=== PATIENT | female | born 1945 | race Caucasian/White ===

== ENCOUNTER 2017-01-20 12:50 | Inpatient (IN) | payer MEDICARE ==
--- NOTE | ~2017-01-20 | CN ---
Consultation Report [id number] [place]. [address] NAME: MADINA FERRIS : 46 STATUS : DIS IN PAT#: [id number] AGE: 71 ADM/REG DATE : 01/21/17 MR#: [id number] REPORT SERV DATE: 02/02/17 DICTATED BY: GINO NEVAREZ DATE: 02/01/17 REPORT STATUS : Draft TRANSCRIBED BY: MODEtelvina DATE: 02/01/17 CONSULT NOTE DATE OF CONSULTATION: 01/21/2017 REASON FOR REQUEST: Evaluation for possible diverticulitis and left lower quadrant abdominal pain. HISTORY OF PRESENT ILLNESS: Ms Ferris is a 71-year-old female, who is status post recent renal artery angioplasty and stent by Dr. Kumar. She went home from this procedure and initially did very well and then started noticing hematoma and swelling in her leg and started developing left lower quadrant abdominal pain. She presented to the emergency room and a CT scan was performed demonstrated a large hematoma, but also evidence of possible diverticulitis, and I was asked to see her for this purpose. She has not had a colonoscopy before. Does report a history of constipation, but no melena, no hematochezia. She states she has had similar pain in the past, but it usually gets better after a bowel movement, and she has not had a bowel movement in several days. She states the pain is worse when she moves, but she denies any fever or chills and states the pain has gotten better since being admitted to the hospital. As mentioned, a CT scan obtained showed suspicion of inflammation from the hematoma or inflammation from diverticulitis, but there is no abscess or pneumoperitoneum. She is noted have an elevated white count in the emergency room, but she has never had any previous hospitalizations for diverticulitis. Also of note, she has a history of chronic renal insufficiency, but her creatinine is slightly elevated in the 3.3 range. She denies any syncope and no other precipitating or alleviating factors. PAST MEDICAL HISTORY: Significant for spinal stenosis, coronary artery disease, chronic renal insufficiency, hypertension, diabetes, hyperlipidemia, and gastroesophageal reflux disease. PREVIOUS SURGERIES: Include back surgery and cardiac stents and renal stents. MEDICATIONS: Taken at home, amlodipine, aspirin, carvedilol, hydralazine, insulin, liraglutide, nitroglycerin, omeprazole, potassium, and Crestor. ALLERGIES: PERCOCET, PROPOXYPHENE, PLAVIX. SOCIAL HISTORY: Denies tobacco or alcohol use. FAMILY HISTORY: Significant for hypertension. REVIEW OF SYSTEMS: A comprehensive 12-point review of systems was obtained and completely negative, otherwise mentioned in the history of present illness. PHYSICAL EXAMINATION: Consultation Report [place] [id number] [place]. [address] NAME: MADINA FERRIS : 46 STATUS : DIS IN PAT#: [id number] AGE: 71 ADM/REG DATE : 01/21/17 MR#: [id number] REPORT SERV DATE: 02/02/17 DICTATED BY: GINO NEVAREZ DATE: 02/01/17 REPORT STATUS : Draft TRANSCRIBED BY: JOSÉ DATE: 02/01/17 VITAL SIGNS: Pulse 75, respirations 18, blood pressure 123/72, temperature is 98. GENERAL: She is a well-developed female, in no acute cardiopulmonary distress. HEENT: Pupils are equal, round, and reactive to light. Extraocular movements intact. Conjunctivae are nonicteric. NECK: Supple. She has no jugular venous distention. No carotid bruits. No cervical lymphadenopathy. PULMONARY: Normal respiratory effort. Breath sounds are clear. CARDIOVASCULAR: Regular rate and rhythm. ABDOMEN: Soft. She does have tenderness to the left side, but she has a large amount of ecchymosis and it is unsure she is tender really from hematoma or truly an abdominal process. She has great bowel sounds and certainly does not have any peritoneal signs. EXTREMITIES: The left groin hematoma and some mild edema. LABORATORY DATA: White blood cell count 16, hematocrit 28, platelet count 133. Sodium 137, potassium 4.5, chloride 98, CO2 of 25, BUN 15, creatinine 3.19, glucose 194. Lipase 335. Total bilirubin 1, alkaline phosphatase 79, ALT 21, AST 38. Lactic acid is 1.5. Procalcitonin is 0.95. CT scan of the abdomen and pelvis was reviewed and demonstrates nonspecific inflammation of the left colon and a large hematoma. There is certainly no intraabdominal abscess or pneumoperitoneum. There are noted to be sigmoid diverticula. ASSESSMENT: 1. Left lower quadrant abdominal pain, possibly secondary to hematoma from recent vascular procedure or diverticulitis. 2. History of hypertension. 3. History of diabetes. 4. Chronic renal insufficiency. I think it is reasonable to treat her as if she has diverticulitis and started on broad- spectrum antibiotics. We will repeat her imaging in a couple days. I recommended she have an outpatient colonoscopy once the inflammation resolves. We will continue to follow this patient along with you. Should any need arise for surgery, we will certainly continue to follow. CARLA/JOSÉ Gino Nevarez M.D. / [id number] CC: Consultation Report [address] [place] [address] NAME: MADINA FERRIS : 46 STATUS : DIS IN PAT#: [id number] AGE: 71 ADM/REG DATE : 01/21/17 MR#: [id number] REPORT SERV DATE: 02/02/17 DICTATED BY: GINO NEVAREZ DATE: 02/01/17 REPORT STATUS : Draft TRANSCRIBED BY: JOSÉ DATE: 02/01/17 Jesús Connors M.D. Cooper Paniagua M.D.
--- NOTE | ~2017-01-20 | DS ---
Discharge Summary [facility] [address] [place]. [address] NAME: MADINA FERRIS : 46 STATUS : DIS IN PAT#: [id number] AGE: 71 ADM/REG DATE : 01/21/17 MR#: [id number] REPORT SERV DATE: 02/01/17 DICTATED BY: KRISTEN DUMONT DATE: 01/28/17 REPORT STATUS : Draft TRANSCRIBED BY: MODL DATE: 01/28/17 ADMISSION DATE: 01/21/2017 DISCHARGE DATE: 01/28/2017 DISCHARGE DIAGNOSES: 1. Pelvic hematoma post procedure. 2. Left groin and flank hematoma post procedure. 3. Diverticulitis. 4. Acute kidney injury. 5. Chronic kidney disease 4. 6. Renovascular hypertension, status post bilateral renal artery stenting by Dr. Bernardo Kumar on 01/18/2017. 7. Bilateral renal artery stenosis post stenting, 01/18/2017. 8. Type 2 diabetes, on basal bolus correction insulin. 9. Anemia of chronic disease. 10.Acute blood loss anemia. 11.Coronary artery disease post CABG, post stenting. 12.Uncontrolled pain associated with acute diverticulitis and hematomas, improved at discharge. 13.Gastroesophageal reflux disease. 14.Spinal stenosis with previous surgery and associated chronic pain syndrome. OPERATIONS AND PROCEDURES: None. PRESENT ILLNESS: This is a 71-year-old white female, who was triaged in the emergency room on 01/20/2017 at 1110 hours complaining of abdominal pain. In the emergency room, her evaluation included a CT scan of her abdomen and pelvis in the setting of recent bilateral renal artery stent placement. The impression was: 1. Left inguinal hematoma with hemorrhage extending superiorly into the left lateral abdominal wall musculature. 2. Abdominal inflammation adjacent to the left descending colon which may be related to an additional area of hemorrhage, but could also represent coincidental mild diverticulitis. 3. Bilateral renal artery stents. 4. Bilateral renal cortical scarring, left greater than right, with relative atrophy of left kidney with nonobstructing left renal calculus. 5. Minimal bibasilar linear atelectasis, mild pleural thickening or fluid in the posterior left chest. She was referred to the Hospitalist Service for admission. She was seen by Dr. Kristen Marmolejo and admitted as described on admission history and physical examination. ADDITIONAL HISTORY: Per Dr. Marmolejo. PHYSICAL EXAMINATION: Per Dr. Marmolejo. Discharge Summary [address] [place]. [address] NAME: MADINA FERRIS : 46 STATUS : DIS IN PAT#: [id number] AGE: 71 ADM/REG DATE : 01/21/17 MR#: [id number] REPORT SERV DATE: 02/01/17 DICTATED BY: KRISTEN DUMONT DATE: 01/28/17 REPORT STATUS : Draft TRANSCRIBED BY: MODL DATE: 01/28/17 ADMISSION LABORATORY: Per Dr. Marmolejo. HOSPITAL COURSE: She was admitted by Dr. Marmolejo with: 1. Abdominal pain. 2. Abnormal CT of abdomen for hemorrhage and diverticulitis as noted. 3. Acute kidney injury on CKD 4. 4. Postural hypotension. All in the setting of the above-mentioned comorbidities. She was admitted to [address] [place] [address]. Home medications were adjusted including discontinuation of olmesartan. IV hydration was given. Her case was discussed with Dr. Bernardo Kumar. IV antibiotics were given. Nephrology consultation was obtained. Her hospitalist care was assumed by Dr. Otoniel Daniels. Her hospitalist care from admission through 01/24/2017 is as outlined on interim summary dictated by Dr. Daniels. HOSPITAL COURSE: 01/25/2017 through 01/28/2017: She had persistent lower abdominal pain associated with anorexia, weakness, and some occasional orthostatic hypotension. Treatment initiated on admission and continued by Dr. Daniels was continued. During this time, her hemoglobin remained stable, and there was no clinical evidence for continued bleeding. She was thought to have acute diverticulitis based on her CT and symptoms. Inflammatory markers were checked to assist in managing her therapy and evaluating her symptoms. Her procalcitonin fell from 0.95 on 01/20/2017 to 0.16 on 01/27/2017. A C-reactive protein fell from 221 on 01/20/2017 to 98.8 on 01/27/2017. Her creatinine which was 3.19 on admission slowly improved and was 1.93 at discharge. She developed some oral mucositis which improved with additional mouth care and Mycelex troches. She was seen by Physical Therapy and slowly ambulated. Her pain management improved with scheduled q.6 hour tramadol and Tylenol. By 01/28/2017, she was stronger. Her appetite was improved. She was eating more. Her mouth irritation had improved. She was having regular stools without diarrhea. She was not orthostatic. Her laboratory studies were as noted above. At this point, it was felt she had achieved a level of improvement and stability where she can be safely discharged home to be seen by Dr. Paniagua next week, Dr. Kline next week, and Discharge Summary [address] [place]. [address] NAME: MADINA FERRIS : 46 STATUS : DIS IN PAT#: [id number] AGE: 71 ADM/REG DATE : 01/21/17 MR#: [id number] REPORT SERV DATE: 02/01/17 DICTATED BY: KRISTEN DUMONT DATE: 01/28/17 REPORT STATUS : Draft TRANSCRIBED BY: JOSÉ DATE: 01/28/17 Dr. Farrell her protective signal installer at the end of this month. She was advised that in the future she needs an outpatient colonoscopy. She will continue her home diet. DISCHARGE MEDICATIONS: Her discharge medications pending outpatient followup will be amlodipine 5 mg at bedtime, aspirin 81 mg daily, Coreg 12.5 mg twice daily, NovoLog home scale per Dr. Farrell, Toujeo insulin reduced from 64 units to 30 units pending home glucose monitoring, Prilosec 20 mg every other day, tramadol 50 mg every six hours plus Tylenol 500 mg every six hours scheduled to be tapered as pain allows, Flagyl 500 mg every eight hours to complete a 10-day course, Victoza 1.8 mg subcu at bedtime, nitroglycerin sublingually as needed, Crestor 40 mg at bedtime, Mycelex troches give times daily for the next five days. At discharge, she was not to use Apresoline 50 mg at bedtime or Benicar 40 mg at bedtime pending followup next week. Discharge time greater than 30 minutes. DD/MODL Kristen Dumont M.D. / [id number] CC: Kristen Dumont, M.D. Cooper Siva, M.Naomie Spivey Jr., M.D. Asma Khan, MD
--- NOTE | ~2017-01-20 | IDS ---
Interim Discharge Summary [facility] [address] [place]. [address] NAME: MADINA FERRIS : 46 STATUS : DIS IN PAT#: [id number] AGE: 71 ADM/REG DATE : 01/21/17 MR#: [id number] REPORT SERV DATE: 01/24/17 DICTATED BY: OTONIEL DANIELS DATE: 01/24/17 REPORT STATUS : Draft TRANSCRIBED BY: MODL DATE: 01/24/17 ADMISSION DATE: 01/21/2017 DISCHARGE DATE: INTERIM DIAGNOSES: 1. Left groin and pelvic hematomas, status post procedure. 2. Mild diverticulitis. 3. Acute on chronic renovascular disease. 4. Type 2 diabetes mellitus. 5. Hypertension. 6. Hypercholesterolemia. 7. Gastroesophageal reflux. 8. Chronic anemia. CONSULTANTS DURING THIS HOSPITALIZATION: 1. Dr. Leo Culp of General Surgery. 2. Dr. Estevan Hidns of Nephrology. INVASIVE PROCEDURES DONE DURING THIS HOSPITALIZATION: None. BRIEF HISTORY OF PRESENT ILLNESS: The patient is a 71-year-old female, whose primary care physician is Dr. Cooper Paniagua, was referred for an abrupt rise in creatinine to Nephrology showing right renal artery stenosis. Dr. Ricco Kumar performed the arteriogram and deployed bilateral renal artery stents. After the renal artery stenosis, her creatinine did bump to about 3.25. Ultrasound of the lower extremity showed no evidence of deep vein thrombosis. This patient returned to the hospital with abdominal pain for about three to four days and a CT showed suspicious for inflammation in the distal colon, so she was admitted. For detailed history and physical exam, please see note dictated by Dr. Jesús Marmolejo on 01/20/2017. HOSPITAL COURSE: After being admitted to the hospital, this patient was given broad-spectrum antibiotic, initially Zosyn. Dr. Culp saw the patient in consultation because of the hematoma in the left groin area. We think that this may be the reason for her pain in the left lower quadrant as this seemed to have spread into the muscle. She did have a slight drop in hemoglobin and hematocrit, and she received one unit of PRBCs. Dr. Ricco Kumar saw the patient in consultation as well and recommended giving IV iron and this was given. This patient's H and H have remained stable. She is still continuing to have pain. Tramadol has significantly helped the pain. We will put her on scheduled tramadol. We will increase her ambulation. I did discuss her care with Dr. Culp today and there is no further surgical intervention. Her creatinine is getting better from 2.8, now down to about 2.1. All other medical parameters have remained stable, and she continues to improve. Our plan is to increase ambulation, and if her pain is well controlled, she could go home with oral Levaquin and Flagyl to finish a total of seven-day course and then follow up in the outpatient setting for further monitoring of her hemoglobin and hematocrit. I did do a repeat CT of her abdomen and pelvis, and there seems to be some increased inflammation but no significant change from previous. Dr. Culp continues to follow the patient with us. Interim Discharge Summary [address] [place]. [address] NAME: MADINA FERRIS : 46 STATUS : DIS IN PAT#: [id number] AGE: 71 ADM/REG DATE : 01/21/17 MR#: [id number] REPORT SERV DATE: 01/24/17 DICTATED BY: OTONIEL DANIELS DATE: 01/24/17 REPORT STATUS : Draft TRANSCRIBED BY: JOSÉ DATE: 01/24/17 DISPOSITION: Pending above. CASSIUS/JOSÉ Otoniel Daniels M.D. / [id number] CC: Naomie Valdovinos M.D.
--- NOTE | ~2017-01-20 | CN ---
Consultation Report [facility] [address] [place]. [address] NAME: MADINA FERRIS : 46 STATUS : DIS IN PAT#: [id number] AGE: 71 ADM/REG DATE : 01/21/17 MR#: [id number] REPORT SERV DATE: 01/20/17 DICTATED BY: DAQUAN HINDS DATE: 01/20/17 REPORT STATUS : Draft TRANSCRIBED BY: MODEtelvina DATE: 01/20/17 DATE OF CONSULTATION: 01/20/2017 TIME: 8:20 p.m. CONSULTATION FOR: 1. The patient with underlying renovascular disease, status post bilateral renal artery stenting by Dr. Bernardo Guevara on 01/18/2017. Creatinine is at baseline. 3.1. She has underlying macrovascular disease and microvascular disease with bilateral renal atrophy. 2. Acute abdominal pain after the above procedure done on 01/18/2017. Pain is suggestive of a peritonitis like etiology. CT scan of the abdomen and pelvis shows a hematoma in the left groin area extending into the left paracolic gutter. Question of irritating the left sigmoid colon leading to diverticular disorder or primary diverticulitis. 3. Type 2 diabetes. 4. Hypertension. 5. She has also hypocholesterolemia and gastroesophageal reflux disease. ALLERGIES: TO OXYCODONE, PROPOXYPHENE, CLOPIDOGREL, AND TICAGRELOR. SOCIAL HISTORY: Does not smoke cigarettes. No alcohol or medication or street drug usage. FAMILY HISTORY: Negative for end-stage renal failure in her parents. HISTORY OF PRESENT ILLNESS: She is a pleasant 71-year-old female, followed by Dr. Chapo Kline in our office. She was actually seen in the office here on 01/04/2017 for progressive declining kidney function. Her creatinine had been gradually rising from 1.3 on 09/2015, 2.4 on 08/2016, and 2.8 in 10/2016. Ultrasound done in our office showed that she had greater than 60% right renal artery stenosis, but there was also no flow noted to the lower pole of the right kidney. The left kidney did not show renovascular disease, but apparently found on the arteriogram. With the progressive declining kidney function, they felt she needed a renal artery stenting which she underwent on the , unfortunately she has developed this complication of abdominal pain and is therefore admitted for further evaluation. The pain is partially relieved with narcotics, but it is very tender to touch over the abdomen. The pain is aggravated by movement, coughing, all suggestive of peritoneal signs. She also has a fairly large hematoma in the left groin. PAST MEDICAL HISTORY: As described above. HOME MEDICATIONS: Include amlodipine, aspirin, carvedilol, hydralazine, insulin, Liraglutide, nitroglycerine, olmesartan, omeprazole, potassium, and Crestor. PHYSICAL EXAMINATION: GENERAL: She is a pleasant lady, in no acute distress, but she is anxious about her abdominal pain. Consultation Report [place] [id number] [facility] [place]. [address] NAME: MADINA FERRIS : 47 STATUS : DIS IN PAT#: [id number] AGE: 71 ADM/REG DATE : 01/21/17 MR#: [id number] REPORT SERV DATE: 01/20/17 DICTATED BY: DAQUAN HINDS DATE: 01/20/17 REPORT STATUS : Draft TRANSCRIBED BY: JOSÉ DATE: 01/20/17 VITAL SIGNS: Show blood pressure is running 138/60, heart rates in the 80s, afebrile. HEENT: Pupils are reacting to light. She is pale. She is also not jaundiced. Oral mucosa is dry. No pharyngitis. NECK: Supple. No thyromegaly. No carotid bruits are heard and no thyromegaly. Trachea is central. Air entry is equal bilaterally. CHEST: Clear to auscultation. CARDIAC: [place] beats not displaced. S1-S2. No rub. ABDOMEN: Mild distention. It is very tender to touch. There is guarding and rebound and limited bowel sounds. I cannot palpate any masses. EXTREMITIES: She has no peripheral edema. No rash reported and no edema. Peripheral pulses are reduced in dorsalis pedis, posterior tibial, but palpable. Muscle, bulk, and tone are appropriate for age and no muscle wasting noted. No acute arthritic findings noted. LYMPH: No supraclavicular, axillary, or inguinal adenopathy described on this occasion. IMAGING: The CT scan of the abdomen and pelvis done today shows, 1. Left inguinal hematoma with hemorrhage extending superiorly into the left lateral abdominal wall musculature. 2. Abdominal inflammation that is adjacent to the ascending colon, may be related to area of hemorrhage, but could not also rule out coincident diverticulitis. 3. Bilateral renal artery stenting. 4. Bilateral renal cortical thinning, left greater than right. Nonobstructive renal calculi noted. Bibasilar atelectasis. LABORATORY DATA: Sodium 137, potassium 4.5, chloride 98, CO2 of 25, BUN 50, creatinine 3.19, glucose 154, albumin 3.2. Hemoglobin 8.8, hematocrit 25.9, white count 16.3, and platelet count is 133,000. Urinalysis is pending. MG/MODL Daquan Hinds M.D. / [id number] CC: Naomie Pressley M.D.
--- NOTE | ~2017-01-20 | HP ---
History And Physical [address] [place]. [address] NAME: MADINA FERRIS : 47 STATUS : DIS IN PAT#: [id number] AGE: 71 ADM/REG DATE : 01/21/17 MR#: [id number] REPORT SERV DATE: 01/20/17 DICTATED BY: KRISTEN QUINN DATE: 01/20/17 REPORT STATUS : Draft TRANSCRIBED BY: MODL DATE: 01/20/17 DATE OF ADMISSION: 01/20/2017 EXAMINING PHYSICIAN: Kristen Quinn M.D. REASON FOR ADMISSION: Hematoma and possible diverticulitis. HISTORY: This is a 71-year-old white female, who has had progressive renal failure. She was seen by Dr. Cooper Paniagua with abrupt rise in her creatinine. She is on multiple medications for hypertension and was referred to Nephrology who did abdominal ultrasound thinking that there was a right renal artery stenosis. On arteriography, Dr. Ricco Kumar found her to have evidence of bilateral renal artery stenosis and on 01/18/2017 placed bilateral renal artery stents. She has a postoperative left groin hematoma. Her creatinine had been as high as 3.3, but after hydration in the hospital after the renal artery stenosis was taken care of, her creatinine fell to 2.8 at the time of discharge. Creatinine on 01/18/2017 was 3.25, on 01/19/2017, it was 2.65. Ultrasound of lower extremity showed no evidence of deep venous thrombosis. The patient returns now with abdominal pain. She has had abdominal pain, even prior to the surgery. It is episodic. About three days ago, it was severe and now has worsened. CT scan showed suspicion of inflammation either from the hematoma itself or with inflammation from the diverticulitis in the sigmoid colon. She has had no fever, chills, [place] [address]. No procalcitonin has been done. PAST MEDICAL HISTORY: She has had spinal stenosis in the past and had surgery on her cervical spine and her lumbar spine in the past. She was on tramadol for this for many years. She has had previous coronary artery bypass grafting in the remote past and had a cardiac stent placed by Dr. 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 She had an ejection fraction 60% by ventriculogram and had no significant mitral regurgitation. It was a vein graft to the circumflex with a 99% stenosis and at its anastomosis, bare metal stent was placed. Dr. Cooper Paniagua has been her primary care physician for many years. MEDICATIONS: She is taking the following medications: Nitroglycerin sublingually p.r.n., Benicar 40 mg p.o. at bedtime, Prilosec 20 mg p.o. daily, potassium gluconate tablets 99 mg at bedtime, Crestor 40 mg at bedtime, amlodipine 5 mg p.o. at bedtime, aspirin 81 mg p.o. daily, carvedilol 25 mg p.o. b.i.d., hydralazine 50 mg p.o. at bedtime, insulin subcu t.i.d. with sliding scale, NovoLog, Toujeo 64 units at bedtime, and Victoza Pen 1.8 mg at bedtime. ALLERGIES: INCLUDE PERCOCET, DARVOCET, PLAVIX, AND BRILINTA. THEY GAVE HER JOINT PAIN, SWELLING, BURNING, AND ITCHING AND FELT LIKE SHE IS GOING TO PASS OUT. SHE DOES SAY THAT WHEN SHE STANDS UP NOW, SHE FEELS IF SHE IS GOING TO PASS OUT WITH History And Physical [address] [place]. [address] NAME: MADINA FERRIS : 47 STATUS : DIS IN PAT#: [id number] AGE: 71 ADM/REG DATE : 01/21/17 MR#: [id number] REPORT SERV DATE: 01/20/17 DICTATED BY: KRISTEN QUINN DATE: 01/20/17 REPORT STATUS : Draft TRANSCRIBED BY: MODEtelvina DATE: 01/20/17 BEING LIGHTHEADED AND GIDDY. SOCIAL HISTORY: She is . She lives on [address] No cigarettes, no alcohol. She does not attend islam. FAMILY HISTORY: No family history of renal disease though arterial vascular disease has run in the family in the past. REVIEW OF SYSTEMS: She has abdominal pain over the right anterior abdomen and flank anterior laterally with ascending pain that reaches the infracostal region and then traverses the entire abdomen to the right. She has had no bowel movement. No diarrhea. She has had no fever, chills, or night sweats. She has not been eating well for the last two to three days. She has had no unilateral weakness, melena, hematemesis, fits, seizures, or convulsions. The remainder of the review of systems is negative. PHYSICAL EXAMINATION: GENERAL: Older-appearing white female, in no acute distress. Appropriate for age. VITAL SIGNS: Her blood pressure fell from supine position at 123/72, 94/61 in the standing position with increase in heart rate. Supine heart rate of 75, respiratory rate 18, afebrile. HEENT: EOMI. Sclerae clear. Conjunctivae pale. She does have some periorbital edema and adequate tearing. Tongue is dry. NECK: No bruit without any JVD. CHEST: Clear. HEART: Regular S1, S2 without murmur, gallop, or click. ABDOMEN: Soft, tender diffusely with evidence of hematoma above the level of the umbilicus on the left side. No specific mass was felt. EXTREMITIES: Without edema. Distal pulses are intact at the dorsalis pedis and posterior tibial. NEUROLOGIC: She withdraws to plantar stimulation. Distance Education Director is equal and symmetric bilaterally. Coordination intact. She has no tremor. Sensory is grossly intact. Motor intact and her automatic lump making machine tender is equal and symmetric. She has no tremor. SKIN: Without rash. There is ecchymosis on the anterior abdominal wall to the level of the inframammary area on the left side. There are some IV ecchymoses as well. LYMPHATICS: There is no adenopathy palpable. LABORATORY DATA: Her glucose is 177 at the time of discharge. Electrolyte panel had improved with a potassium of 4.6, creatinine 2.65, BUN 44, calcium of 8.4 at the time of discharge yesterday. Creatinine has increased now to 3.19. CT scan of the abdomen and pelvis showed abdominal inflammation adjacent to the left descending colon which may be related to area of hemorrhage but also could be coincidental diverticulitis, two bilateral renal artery stents, bilateral renal cortical scarring left greater than right with atrophy left kidney. She has prominent bibasilar atelectasis and History And Physical [address] [place]. [address] NAME: MADINA FERRIS : 47 STATUS : DIS IN PAT#: [id number] AGE: 71 ADM/REG DATE : 01/21/17 MR#: [id number] REPORT SERV DATE: 01/20/17 DICTATED BY: KRISTEN QUINN DATE: 01/20/17 REPORT STATUS : Draft TRANSCRIBED BY: MODL DATE: 01/20/17 left inguinal hematoma. The lung bases were clear. Lactate level was 1.5. Her CMP showed creatinine up to 3.19 with a BUN of 50. Sodium 137, potassium 4.5. Liver tests were normal. Albumin was 3.2. CBC showed white count 49231, hemoglobin 9.7, hematocrit 28.1, and platelets were 133,000. ASSESSMENT: 1. Abdominal pain. It actually preceded the stenting and had some recurrence previously with elevated white count now, suspicious for diverticulitis. We will therefore treat with antibiotics, check procalcitonin. If the procalcitonin level is normal, we will likely discontinue antibiotics and consider pericolic inflammation to be the source of the abdominal pain and the source of inflammation from the renal artery stenosis. 2. Chronic kidney disease. Creatinine now back up from 2.65 to 3.19 overnight. 3. Postural hypotension. 4. Left groin hematoma. 5. Bilateral renal artery stenosis stented on 01/18/[address] Kumar. 6. Renal atrophy left greater than right indicates longstanding stenosis causing the problem with renal failure. 7. Hypertension, long-standing now with postural hypotension. We will hold medication as much as possible. 8. Leukocytosis, may relate to stress or may represent infection. Antibiotics continued but checking procalcitonin for evidence of hematoma causing abdominal pain. PLAN: Admit to the hospital. I am going to hydrate 2 L of IV fluid to see if this helps budge the creatinine down. Hold the nephrotoxic drugs, olmesartan and see if the creatinine comes down. I now discussed with Dr. Kumar who believes that actually this is a case of diverticulitis. Procalcitonin should be helpful to help us decide. The IV antibiotics will be given temporarily along with IV fluid hydration and see if the creatinine does fall. We will consult Dr. Chapo Kline, who has seen her in the past and consult Dr. Kumar who did the renal artery stenosis repair on 01/18/2017. DB/MODL Kristen Quinn M.D. / [id number] CC: Naomie Pressley M.D. Nilesh C Patel, M.D. Daniel Fisher Jr., M.D.
[2017-01-20 11:53] LABS: BASOPHILS 0.1 %; BASOPHILS ABSOLUTE 0.01 10/3/uL (0.0-0.16); EOSINOPHILS 0.2 %; EOSINOPHILS ABSOLUTE 0.03 10/3/uL (0.0-0.53); ER CBC TAT 0 Hrs 07 Mins; HEMATOCRIT 28.1 % (36.0-48.0); HEMOGLOBIN 9.7 g/dL (12.0-16.0); IMMATURE GRANULOCYTES 0.4 %; IMMATURE GRANULOCYTES ABSOLUTE 0.06 10/3/uL (0.0-0.11); LYMPHOCYTES 7.2 %; LYMPHOCYTES ABSOLUTE 1.17 10/3/uL (0.67-4.30); MANUAL DIFF NO %; MEAN CORPUS HGB CONC 34.5 g/dL (32.0-36.0); MEAN CORPUSCULAR HEMOGLOB 30.5 pg (26.0-34.0); MEAN CORPUSCULAR VOLUME 88.4 fL (80-100); MEAN PLATELET VOLUME 9.1 fL (9.2-13.0); MONOCYTES 6.2 %; MONOCYTES ABSOLUTE 1.01 10/3/uL (0.21-1.20); NEUTROPHILS 85.9 %; NEUTROPHILS ABSOLUTE 14.05 10/3/uL (2.02-8.40); PLATELET COUNT 133 10/3/uL (150-400); RBC DISTRIBUTION WIDTH 13.3 % (12.0-16.0); RED CELL COUNT 3.18 10/6/uL (4.0-5.6); WHITE BLOOD CELLS 16.3 10/3/uL (4.5-10.5)
[2017-01-20 12:08] LABS: A/G RATIO 0.9 (0.7-1.9); ALBUMIN 3.2 G/DL (3.5-5.0); ALKALINE PHOSPHATASE 79 U/L (45-117); BUN (BLOOD UREA NITROGEN) 50 MG/DL (6-23); CHLORIDE, SERUM 98 MMOL/L (96-112); CO2 (CARBON DIOXIDE) 25 MMOL/L (24-34); CREATININE 3.19 MG/DL (0.55-1.02); GFR AFRICAN AMERICAN 16 ML/MIN (>=60); GFR NON AFRICAN AMERICAN 14 ML/MIN (>=60); GLOBULIN 3.4 G/DL (2.5-4.1); GLUCOSE, SERUM 194 MG/DL (60-99); POTASSIUM, SERUM 4.5 MMOL/L (3.5-5.3); SGOT(AST) 38 U/L (5-40); SGPT(ALT) 21 U/L (5-65); SODIUM, SERUM 137 MMOL/L (135-148); TOTAL PROTEIN 6.6 G/DL (6.0-8.5)
[~2017-01-20 12:50] MED LIST: APRES25 PO; APRES50 PO; ASA5GR PO; ASAB PO; BENICAR40 PO; BRILINTA90 MG PO; BUPROBAN150 MG PO; BYSTOLIC10 MG PO; COREG25 PO; CRESTOR40 MG PO; EFFIENT10 PO; HARD NAILS OR; HYDROCHLOROT12.5 MG PO; HYZAAR1 TAB PO; IMDUR30 PO; LANTUSCART SC; LIPITOR80 MG PO; MELATONIN5 M1 PO; NITROII10C TOP; NITROSTAT0.4 MG SL; NORV5 PO; NOVOLOG SC; NOVOPEN SC; NOVOPENMIX SC; POTASSIUM GLUCO99 MG PO; POTASSIUM95 MG PO; PRILO PO; T PO; TOUJEO SC; ULTRAM50 PO; VICTOZA18 MG/3 ML SC
[2017-01-20] MEDS ORDERED: NORV5 PO (13:24)
[2017-01-20] MEDS ORDERED: HALF81 PO (13:25)
[2017-01-20] MEDS ORDERED: COREG25 PO (13:25)
[2017-01-20] MEDS ORDERED: NOVOLOG SC (13:26)
[2017-01-20] MEDS ORDERED: TOUJEO SC (13:26)
[2017-01-20] MEDS ORDERED: APRES50 PO (13:26)
[2017-01-20] MEDS ORDERED: VICTOZA18 MG/3 ML SC (13:27)
[2017-01-20] MEDS ORDERED: NITROSTAT0.4 MG SL (13:27)
[2017-01-20] MEDS ORDERED: PRILO PO (13:27)
[2017-01-20] MEDS ORDERED: BENICAR40 PO (13:27)
[2017-01-20] MEDS ORDERED: POTASSIUM GLUCO99 MG PO (13:32)
[2017-01-20] MEDS ORDERED: CRESTOR40 MG PO (13:32)
[2017-01-20 18:16] LABS: HEMATOCRIT 25.9 % (36.0-48.0); HEMOGLOBIN 8.8 g/dL (12.0-16.0)
[2017-01-20 18:50] LABS: PROCALCITONIN 0.95 ng/mL (<0.5)
[2017-01-20 22:30] LABS: HEMATOCRIT 24.5 % (36.0-48.0); HEMOGLOBIN 8.3 g/dL (12.0-16.0)
[2017-01-21 03:39] LABS: BASOPHILS 0.1 %; BASOPHILS ABSOLUTE 0.01 10/3/uL (0.0-0.16); EOSINOPHILS 1.5 %; EOSINOPHILS ABSOLUTE 0.18 10/3/uL (0.0-0.53); HEMATOCRIT 25.4 % (36.0-48.0); HEMOGLOBIN 8.5 g/dL (12.0-16.0); IMMATURE GRANULOCYTES 0.3 %; IMMATURE GRANULOCYTES ABSOLUTE 0.03 10/3/uL (0.0-0.11); LYMPHOCYTES 10.7 %; LYMPHOCYTES ABSOLUTE 1.25 10/3/uL (0.67-4.30); MEAN CORPUS HGB CONC 33.5 g/dL (32.0-36.0); MEAN CORPUSCULAR HEMOGLOB 30.2 pg (26.0-34.0); MEAN CORPUSCULAR VOLUME 90.4 fL (80-100); MEAN PLATELET VOLUME 9.3 fL (9.2-13.0); MONOCYTES 7.5 %; MONOCYTES ABSOLUTE 0.87 10/3/uL (0.21-1.20); NEUTROPHILS 79.9 %; NEUTROPHILS ABSOLUTE 9.33 10/3/uL (2.02-8.40); PLATELET COUNT 133 10/3/uL (150-400); RBC DISTRIBUTION WIDTH 13.3 % (12.0-16.0); RED CELL COUNT 2.81 10/6/uL (4.0-5.6); WHITE BLOOD CELLS 11.7 10/3/uL (4.5-10.5)
[2017-01-21 03:41] LABS: MANUAL DIFF NO %
[2017-01-21 03:48] LABS: INTERNATIONAL NORMAL RATI 1.3 UNITS (-); PROTIME (NOT ORD) 15.9 SEC (12.0-14.5)
[2017-01-21 04:16] LABS: ALBUMIN 2.6 G/DL (3.5-5.0); ALKALINE PHOSPHATASE 78 U/L (45-117); BUN (BLOOD UREA NITROGEN) 47 MG/DL (6-23); CALCIUM, SERUM 8.4 MG/DL (8.5-10.4); CHLORIDE, SERUM 103 MMOL/L (96-112); CO2 (CARBON DIOXIDE) 25 MMOL/L (24-34); CREATININE 2.82 MG/DL (0.55-1.02); DIRECT BILIRUBIN 0.1 MG/DL (0.0-0.4); GFR AFRICAN AMERICAN 19 ML/MIN (>=60); GFR NON AFRICAN AMERICAN 16 ML/MIN (>=60); INDIRECT BILIRUBIN(NOT ORDER) 0.8 MG/DL (0.1-0.9); PHOSPHORUS, SERUM 2.6 MG/DL (2.5-4.5); POTASSIUM, SERUM 4.5 MMOL/L (3.5-5.3); SGOT(AST) 26 U/L (5-40); SGPT(ALT) 19 U/L (5-65); SODIUM, SERUM 138 MMOL/L (135-148); TOTAL BILIRUBIN 0.9 MG/DL (0-1.2); TOTAL PROTEIN 6.1 G/DL (6.0-8.5)
[2017-01-21 04:26] LABS: GLUCOSE, SERUM 129 MG/DL (60-99)
[2017-01-21 14:51] LABS: HEMATOCRIT 25.6 % (36.0-48.0); HEMOGLOBIN 8.6 g/dL (12.0-16.0)
[2017-01-21 17:36] LABS: ASCORBIC ACID (UR NOT ORDER) NEG (NEG); BILIRUBIN, URINE NEGATIVE (NEG); KETONE, URINE NEGATIVE (NEG); LEUKOCYTE ESTERASE(NOT OR NEG (NEG); WBC (NOT ORDERED) (RFLEX) 2 (0-5)
[2017-01-22 00:47] LABS: HEMATOCRIT 24.1 % (36.0-48.0); HEMOGLOBIN 8.1 g/dL (12.0-16.0)
[2017-01-22 06:27] LABS: BASOPHILS 0.1 %; BASOPHILS ABSOLUTE 0.01 10/3/uL (0.0-0.16); EOSINOPHILS ABSOLUTE 0.46 10/3/uL (0.0-0.53); HEMATOCRIT 24.2 % (36.0-48.0); HEMOGLOBIN 8.1 g/dL (12.0-16.0); IMMATURE GRANULOCYTES 0.4 %; IMMATURE GRANULOCYTES ABSOLUTE 0.05 10/3/uL (0.0-0.11); LYMPHOCYTES 9.7 %; MEAN CORPUS HGB CONC 33.5 g/dL (32.0-36.0); MEAN CORPUSCULAR HEMOGLOB 29.9 pg (26.0-34.0); MEAN CORPUSCULAR VOLUME 89.3 fL (80-100); MEAN PLATELET VOLUME 9.7 fL (9.2-13.0); MONOCYTES 10.5 %; MONOCYTES ABSOLUTE 1.19 10/3/uL (0.21-1.20); NEUTROPHILS 75.3 %; NEUTROPHILS ABSOLUTE 8.55 10/3/uL (2.02-8.40); PLATELET COUNT 150 10/3/uL (150-400); RBC DISTRIBUTION WIDTH 13.3 % (12.0-16.0); RED CELL COUNT 2.71 10/6/uL (4.0-5.6); WHITE BLOOD CELLS 11.4 10/3/uL (4.5-10.5)
[2017-01-22 06:28] LABS: MANUAL DIFF NO %
[2017-01-22 06:35] LABS: ALBUMIN 2.3 G/DL (3.5-5.0); CALCIUM, SERUM 8.6 MG/DL (8.5-10.4); CHLORIDE, SERUM 103 MMOL/L (96-112); CO2 (CARBON DIOXIDE) 26 MMOL/L (24-34); GFR AFRICAN AMERICAN 19 ML/MIN (>=60); GFR NON AFRICAN AMERICAN 16 ML/MIN (>=60); GLUCOSE, SERUM 125 MG/DL (60-99); PHOSPHORUS, SERUM 2.7 MG/DL (2.5-4.5); POTASSIUM, SERUM 4.2 MMOL/L (3.5-5.3); SODIUM, SERUM 138 MMOL/L (135-148)
[2017-01-22 06:37] LABS: BUN (BLOOD UREA NITROGEN) 42 MG/DL (6-23)
[2017-01-22 13:40] LABS: HEMATOCRIT 23.6 % (36.0-48.0); HEMOGLOBIN 7.9 g/dL (12.0-16.0)
[2017-01-23 02:40] LABS: HEMOGLOBIN 8.1 g/dL (12.0-16.0)
[2017-01-23 02:59] LABS: ALBUMIN 2.3 G/DL (3.5-5.0); BUN (BLOOD UREA NITROGEN) 40 MG/DL (6-23); CALCIUM, SERUM 8.6 MG/DL (8.5-10.4); CHLORIDE, SERUM 104 MMOL/L (96-112); CO2 (CARBON DIOXIDE) 25 MMOL/L (24-34); CREATININE 2.51 MG/DL (0.55-1.02); GFR AFRICAN AMERICAN 22 ML/MIN (>=60); GFR NON AFRICAN AMERICAN 19 ML/MIN (>=60); GLUCOSE, SERUM 131 MG/DL (60-99); PHOSPHORUS, SERUM 1.9 MG/DL (2.5-4.5); POTASSIUM, SERUM 4.6 MMOL/L (3.5-5.3); SODIUM, SERUM 138 MMOL/L (135-148)
[2017-01-23 07:02] LABS: BASOPHILS 0.1 %; BASOPHILS ABSOLUTE 0.01 10/3/uL (0.0-0.16); EOSINOPHILS ABSOLUTE 0.41 10/3/uL (0.0-0.53); HEMATOCRIT 23.9 % (36.0-48.0); HEMOGLOBIN 7.9 g/dL (12.0-16.0); IMMATURE GRANULOCYTES 0.4 %; IMMATURE GRANULOCYTES ABSOLUTE 0.03 10/3/uL (0.0-0.11); LYMPHOCYTES 16.2 %; LYMPHOCYTES ABSOLUTE 1.32 10/3/uL (0.67-4.30); MEAN CORPUS HGB CONC 33.1 g/dL (32.0-36.0); MEAN CORPUSCULAR HEMOGLOB 29.5 pg (26.0-34.0); MEAN CORPUSCULAR VOLUME 89.2 fL (80-100); MEAN PLATELET VOLUME 9.5 fL (9.2-13.0); MONOCYTES 12.1 %; MONOCYTES ABSOLUTE 0.98 10/3/uL (0.21-1.20); NEUTROPHILS 66.2 %; NEUTROPHILS ABSOLUTE 5.38 10/3/uL (2.02-8.40); PLATELET COUNT 171 10/3/uL (150-400); RBC DISTRIBUTION WIDTH 13.4 % (12.0-16.0); RED CELL COUNT 2.68 10/6/uL (4.0-5.6); WHITE BLOOD CELLS 8.1 10/3/uL (4.5-10.5)
[2017-01-23 07:10] LABS: MANUAL DIFF NO %
[2017-01-23 13:42] LABS: HEMATOCRIT 24.2 % (36.0-48.0); HEMOGLOBIN 8.1 g/dL (12.0-16.0)
[2017-01-24 01:56] LABS: BASOPHILS 0.1 %; BASOPHILS ABSOLUTE 0.01 10/3/uL (0.0-0.16); EOSINOPHILS 4.5 %; EOSINOPHILS ABSOLUTE 0.43 10/3/uL (0.0-0.53); HEMOGLOBIN 9.1 g/dL (12.0-16.0); IMMATURE GRANULOCYTES 0.5 %; IMMATURE GRANULOCYTES ABSOLUTE 0.05 10/3/uL (0.0-0.11); LYMPHOCYTES 13.4 %; LYMPHOCYTES ABSOLUTE 1.28 10/3/uL (0.67-4.30); MEAN CORPUS HGB CONC 33.3 g/dL (32.0-36.0); MEAN CORPUSCULAR HEMOGLOB 29.3 pg (26.0-34.0); MEAN CORPUSCULAR VOLUME 87.8 fL (80-100); MEAN PLATELET VOLUME 9.1 fL (9.2-13.0); MONOCYTES 11.6 %; MONOCYTES ABSOLUTE 1.11 10/3/uL (0.21-1.20); NEUTROPHILS 69.9 %; NEUTROPHILS ABSOLUTE 6.66 10/3/uL (2.02-8.40); PLATELET COUNT 165 10/3/uL (150-400); RBC DISTRIBUTION WIDTH 13.7 % (12.0-16.0); RED CELL COUNT 3.11 10/6/uL (4.0-5.6); WHITE BLOOD CELLS 9.5 10/3/uL (4.5-10.5)
[2017-01-24 01:58] LABS: HEMATOCRIT 27.3 % (36.0-48.0); MANUAL DIFF NO %
[2017-01-24 02:14] LABS: ALBUMIN 2.3 G/DL (3.5-5.0); CALCIUM, SERUM 8.8 MG/DL (8.5-10.4); CHLORIDE, SERUM 103 MMOL/L (96-112); CO2 (CARBON DIOXIDE) 25 MMOL/L (24-34); CREATININE 2.19 MG/DL (0.55-1.02); GFR AFRICAN AMERICAN 26 ML/MIN (>=60); GFR NON AFRICAN AMERICAN 22 ML/MIN (>=60); GLUCOSE, SERUM 141 MG/DL (60-99); PHOSPHORUS, SERUM 2.1 MG/DL (2.5-4.5); POTASSIUM, SERUM 4.1 MMOL/L (3.5-5.3); SODIUM, SERUM 139 MMOL/L (135-148)
[2017-01-24 02:17] LABS: BUN (BLOOD UREA NITROGEN) 36 MG/DL (6-23)
[2017-01-24 16:27] LABS: HEMATOCRIT 29.7 % (36.0-48.0)
[2017-01-25 05:08] LABS: BASOPHILS 0.2 %; BASOPHILS ABSOLUTE 0.02 10/3/uL (0.0-0.16); EOSINOPHILS 4.2 %; HEMATOCRIT 31.5 % (36.0-48.0); HEMOGLOBIN 10.5 g/dL (12.0-16.0); LYMPHOCYTES 14.4 %; LYMPHOCYTES ABSOLUTE 1.39 10/3/uL (0.67-4.30); MANUAL DIFF NO %; MEAN CORPUS HGB CONC 33.3 g/dL (32.0-36.0); MEAN CORPUSCULAR HEMOGLOB 29.2 pg (26.0-34.0); MEAN CORPUSCULAR VOLUME 87.7 fL (80-100); MONOCYTES 11.7 %; MONOCYTES ABSOLUTE 1.13 10/3/uL (0.21-1.20); NEUTROPHILS 68.5 %; NEUTROPHILS ABSOLUTE 6.58 10/3/uL (2.02-8.40); PLATELET COUNT 207 10/3/uL (150-400); RBC DISTRIBUTION WIDTH 13.4 % (12.0-16.0); RED CELL COUNT 3.59 10/6/uL (4.0-5.6); WHITE BLOOD CELLS 9.6 10/3/uL (4.5-10.5)
[2017-01-25 05:25] LABS: ALBUMIN 2.5 G/DL (3.5-5.0); CHLORIDE, SERUM 100 MMOL/L (96-112); CO2 (CARBON DIOXIDE) 23 MMOL/L (24-34); CREATININE 1.97 MG/DL (0.55-1.02); GFR AFRICAN AMERICAN 29 ML/MIN (>=60); GFR NON AFRICAN AMERICAN 25 ML/MIN (>=60); PHOSPHORUS, SERUM 2.3 MG/DL (2.5-4.5); POTASSIUM, SERUM 3.9 MMOL/L (3.5-5.3); SODIUM, SERUM 136 MMOL/L (135-148)
[2017-01-25 05:27] LABS: BUN (BLOOD UREA NITROGEN) 32 MG/DL (6-23); GLUCOSE, SERUM 96 MG/DL (60-99)
[2017-01-25 17:58] LABS: HEMATOCRIT 30.9 % (36.0-48.0); HEMOGLOBIN 10.5 g/dL (12.0-16.0)
[2017-01-26 05:30] LABS: BASOPHILS 0.3 %; BASOPHILS ABSOLUTE 0.03 10/3/uL (0.0-0.16); EOSINOPHILS 4.2 %; EOSINOPHILS ABSOLUTE 0.39 10/3/uL (0.0-0.53); HEMATOCRIT 32.4 % (36.0-48.0); HEMOGLOBIN 10.7 g/dL (12.0-16.0); IMMATURE GRANULOCYTES 1.3 %; IMMATURE GRANULOCYTES ABSOLUTE 0.12 10/3/uL (0.0-0.11); LYMPHOCYTES ABSOLUTE 1.31 10/3/uL (0.67-4.30); MEAN CORPUSCULAR HEMOGLOB 29.1 pg (26.0-34.0); MONOCYTES 12.6 %; MONOCYTES ABSOLUTE 1.18 10/3/uL (0.21-1.20); NEUTROPHILS 67.6 %; NEUTROPHILS ABSOLUTE 6.32 10/3/uL (2.02-8.40); PLATELET COUNT 221 10/3/uL (150-400); RBC DISTRIBUTION WIDTH 13.8 % (12.0-16.0); RED CELL COUNT 3.68 10/6/uL (4.0-5.6); WHITE BLOOD CELLS 9.4 10/3/uL (4.5-10.5)
[2017-01-26 05:34] LABS: MANUAL DIFF NO %
[2017-01-26 05:40] LABS: BUN (BLOOD UREA NITROGEN) 33 MG/DL (6-23); CALCIUM, SERUM 9.2 MG/DL (8.5-10.4); CHLORIDE, SERUM 100 MMOL/L (96-112); CO2 (CARBON DIOXIDE) 26 MMOL/L (24-34); CREATININE 2.11 MG/DL (0.55-1.02); GFR AFRICAN AMERICAN 27 ML/MIN (>=60); GFR NON AFRICAN AMERICAN 23 ML/MIN (>=60); POTASSIUM, SERUM 4.2 MMOL/L (3.5-5.3); SODIUM, SERUM 136 MMOL/L (135-148)
[2017-01-26 05:43] LABS: GLUCOSE, SERUM 124 MG/DL (60-99)
[2017-01-26 15:52] LABS: HEMATOCRIT 32.8 % (36.0-48.0); HEMOGLOBIN 10.9 g/dL (12.0-16.0)
[2017-01-27 04:37] LABS: BASOPHILS 0.3 %; BASOPHILS ABSOLUTE 0.03 10/3/uL (0.0-0.16); EOSINOPHILS 3.1 %; EOSINOPHILS ABSOLUTE 0.34 10/3/uL (0.0-0.53); HEMATOCRIT 33.7 % (36.0-48.0); HEMOGLOBIN 11.2 g/dL (12.0-16.0); IMMATURE GRANULOCYTES 1.3 %; IMMATURE GRANULOCYTES ABSOLUTE 0.14 10/3/uL (0.0-0.11); LYMPHOCYTES 12.4 %; LYMPHOCYTES ABSOLUTE 1.37 10/3/uL (0.67-4.30); MEAN CORPUS HGB CONC 33.2 g/dL (32.0-36.0); MEAN CORPUSCULAR HEMOGLOB 29.2 pg (26.0-34.0); MEAN CORPUSCULAR VOLUME 87.8 fL (80-100); MEAN PLATELET VOLUME 8.6 fL (9.2-13.0); MONOCYTES 9.8 %; MONOCYTES ABSOLUTE 1.09 10/3/uL (0.21-1.20); NEUTROPHILS 73.1 %; NEUTROPHILS ABSOLUTE 8.11 10/3/uL (2.02-8.40); PLATELET COUNT 233 10/3/uL (150-400); RBC DISTRIBUTION WIDTH 13.5 % (12.0-16.0); RED CELL COUNT 3.84 10/6/uL (4.0-5.6); WHITE BLOOD CELLS 11.1 10/3/uL (4.5-10.5)
[2017-01-27 04:42] LABS: MANUAL DIFF NO %
[2017-01-27 04:50] LABS: BUN (BLOOD UREA NITROGEN) 38 MG/DL (6-23); CALCIUM, SERUM 9.2 MG/DL (8.5-10.4); CHLORIDE, SERUM 99 MMOL/L (96-112); CO2 (CARBON DIOXIDE) 27 MMOL/L (24-34); CREATININE 2.07 MG/DL (0.55-1.02); GFR AFRICAN AMERICAN 27 ML/MIN (>=60); GFR NON AFRICAN AMERICAN 24 ML/MIN (>=60); GLUCOSE, SERUM 150 MG/DL (60-99); POTASSIUM, SERUM 4.4 MMOL/L (3.5-5.3); SODIUM, SERUM 134 MMOL/L (135-148)
[2017-01-27 12:04] LABS: C-REACTIVE PROTEIN 98.8 MG/L (<8.0)
[2017-01-27 12:56] LABS: PROCALCITONIN 0.16 ng/mL (<0.5)
[2017-01-27 15:55] LABS: HEMATOCRIT 34.4 % (36.0-48.0); HEMOGLOBIN 11.6 g/dL (12.0-16.0)
[2017-01-28 07:13] LABS: BASOPHILS 0.3 %; BASOPHILS ABSOLUTE 0.03 10/3/uL (0.0-0.16); EOSINOPHILS 3.7 %; EOSINOPHILS ABSOLUTE 0.44 10/3/uL (0.0-0.53); HEMOGLOBIN 11.2 g/dL (12.0-16.0); IMMATURE GRANULOCYTES 0.8 %; IMMATURE GRANULOCYTES ABSOLUTE 0.09 10/3/uL (0.0-0.11); LYMPHOCYTES 14.5 %; LYMPHOCYTES ABSOLUTE 1.71 10/3/uL (0.67-4.30); MEAN CORPUS HGB CONC 33.9 g/dL (32.0-36.0); MEAN CORPUSCULAR HEMOGLOB 29.9 pg (26.0-34.0); MEAN PLATELET VOLUME 8.4 fL (9.2-13.0); MONOCYTES ABSOLUTE 1.06 10/3/uL (0.21-1.20); NEUTROPHILS 71.7 %; NEUTROPHILS ABSOLUTE 8.43 10/3/uL (2.02-8.40); PLATELET COUNT 250 10/3/uL (150-400); RBC DISTRIBUTION WIDTH 13.2 % (12.0-16.0); RED CELL COUNT 3.75 10/6/uL (4.0-5.6); WHITE BLOOD CELLS 11.8 10/3/uL (4.5-10.5)
[2017-01-28 07:15] LABS: MANUAL DIFF NO %
[2017-01-28 07:29] LABS: BUN (BLOOD UREA NITROGEN) 33 MG/DL (6-23); CALCIUM, SERUM 8.8 MG/DL (8.5-10.4); CHLORIDE, SERUM 101 MMOL/L (96-112); CO2 (CARBON DIOXIDE) 24 MMOL/L (24-34); CREATININE 1.93 MG/DL (0.55-1.02); GFR AFRICAN AMERICAN 30 ML/MIN (>=60); GFR NON AFRICAN AMERICAN 26 ML/MIN (>=60); GLUCOSE, SERUM 103 MG/DL (60-99); POTASSIUM, SERUM 3.9 MMOL/L (3.5-5.3); SODIUM, SERUM 137 MMOL/L (135-148)
[2017-01-28] MEDS ORDERED: ULTRAM50 PO (12:02)
[2017-01-28] MEDS ORDERED: FLAG500TAB PO (12:05)
[2017-01-28] MEDS ORDERED: MYCELEX10 MG MT (12:08)
[2017-07-08] MEDS ORDERED: CRESTOR40 MG PO (12:26)
== END 2017-01-28 13:26 | disposition home or self-care (01) | DRG 908 ==
LOC: ER 12:50 → 6NO 15:52
PROVIDERS: Emergency Medicine; Internal Medicine
PROC: 047A34Z Dilation of Left Renal Artery with Drug-eluting Intraluminal Device, Percutaneous Approach (ICD-10-PCS; 2017-01-21)
PROC: 047934Z Dilation of Right Renal Artery with Drug-eluting Intraluminal Device, Percutaneous Approach (ICD-10-PCS; 2017-01-21)
PROC: B41D1ZZ Fluoroscopy of Aorta and Bilateral Lower Extremity Arteries using Low Osmolar Contrast (ICD-10-PCS; 2017-01-21)
PROC: B4181ZZ Fluoroscopy of Bilateral Renal Arteries using Low Osmolar Contrast (ICD-10-PCS; 2017-01-21)
PROC: 30233N1 Transfusion of Nonautologous Red Blood Cells into Peripheral Vein, Percutaneous Approach (ICD-10-PCS; principal; 2017-01-23)
DX: I97.638 Postprocedural hematoma of a circulatory system organ or structure following other circulatory system procedure (principal); K57.92 Diverticulitis of intestine, part unspecified, without perforation or abscess without bleeding; N18.4 Chronic kidney disease, stage 4 (severe); E11.22 Type 2 diabetes mellitus with diabetic chronic kidney disease; E11.65 Type 2 diabetes mellitus with hyperglycemia; N17.9 Acute kidney failure, unspecified; I25.810 Atherosclerosis of coronary artery bypass graft(s) without angina pectoris; D62 Acute posthemorrhagic anemia; I12.9 Hypertensive chronic kidney disease with stage 1 through stage 4 chronic kidney disease, or unspecified chronic kidney disease; I70.1 Atherosclerosis of renal artery; Y83.8 Other surgical procedures as the cause of abnormal reaction of the patient, or of later complication, without mention of misadventure at the time of the procedure; Y82.8 Other medical devices associated with adverse incidents; M48.02 Spinal stenosis, cervical region; N18.9 Chronic kidney disease, unspecified; E78.00 Pure hypercholesterolemia, unspecified; K21.9 Gastro-esophageal reflux disease without esophagitis; K12.30 Oral mucositis (ulcerative), unspecified; D63.8 Anemia in other chronic diseases classified elsewhere; F41.9 Anxiety disorder, unspecified; G89.4 Chronic pain syndrome; Z95.5 Presence of coronary angioplasty implant and graft; Z88.5 Allergy status to narcotic agent; Z79.4 Long term (current) use of insulin; Z88.8 Allergy status to other drugs, medicaments and biological substances; Z87.891 Personal history of nicotine dependence; Z79.82 Long term (current) use of aspirin; Z79.899 Other long term (current) drug therapy; Z86.73 Personal history of transient ischemic attack (TIA), and cerebral infarction without residual deficits; Z98.1 Arthrodesis status; Z95.820 Peripheral vascular angioplasty status with implants and grafts
CPT/HCPCS: 36415; 37236; 37237; 74176; 75625; 80048; 80053; 80069; 80076; 81001; 82962; 83605; 83615; 83690; 84145; 85014; 85018; 85025; 85610; 85652; 86140; 86850; 86900; 86901; 86920; 93005; 93971; 94640; 96361; 96365; 96375; 97162-GP; 97530-GP; 99285; A9270-GY; C1769; C1876; C1887; C1893; C1894; G0378; G8978-CJ-GP; G8979-CI-GP; J0690; J1170; J2270; J2405; J2543; J2916; J3010; P9016; Q9966